=== PATIENT | female | born 1975 ===

== ENCOUNTER 2017-10-23 22:16 | Emergency (ER) | payer MEDICAID ==
[2017-10-23 22:42] VITALS: BMI 29.7
[2017-10-23 22:46] VITALS: RESP 18; TEMP 98.1
[2017-10-23] MEDS ORDERED: TDAP Vaccine 0.5 mL Syr IM ONE (23:10)
--- NOTE | 2017-10-23 23:10 | ED PDOC ---
Arrival/HPI - General Chief Complaint: Abnormal Skin Integrity Time Seen by Provider: 10/23/17 23:10 Historian: Patient, Spouse - History of Present Illness Narrative History of Present Illness (Text): 10/23/17 23:10 This 41 yo female came to ED c/o left 3rd finger laceration x [employer]. Patient stated while cutting a cellphone Past Medical History - Infectious Disease Hx of Infectious Diseases: None - Tetanus Immunization Tetanus Immunization: Unknown - Cardiac Hx Cardiac Disorders: No Other/Comment: DVT - Pulmonary Hx Respiratory Disorders: Yes Other/Comment: SMOKES CIGARETTES - Neurological Hx Neurological Disorder: Yes Hx Seizures: Yes - HEENT Hx HEENT Disorder: No - Renal Other/Comment: URINARY RETENTION - Endocrine/Metabolic Hx Endocrine Disorders: No - Hematological/Oncological Hx Blood Disorders: Yes Hx Cancer: Yes (UTERINE CA) Hx Chemotherapy: Yes - Integumentary Hx Dermatological Disorder: No - Musculoskeletal/Rheumatological Hx Musculoskeletal Disorders: Yes Hx Falls: Yes Hx Unsteady Gait: Yes - Gastrointestinal Hx Gastrointestinal Disorders: Yes Other/Comment: GASTRIC BYPASS - Genitourinary/Gynecological Hx 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) Other/Comment: HYSTERECTOMY - Psychiatric Hx Psychophysiologic Disorder: Yes Hx Anxiety: Yes Hx Substance Use: No (DENIES) - Surgical History Hx Gastric Bypass Surgery: Yes Hx Hysterectomy: Yes Other/Comment: bladder sling , bilat bunionectomy - Anesthesia Hx Anesthesia: No Hx Anesthesia Reactions: No Hx Malignant Hyperthermia: No - Suicidal Assessment Feels Threatened In Home Enviroment: No Family/Social History Smoking Status: Light Smoker < 10 Cigarettes Daily Hx Alcohol Use: No (DENIES) Hx Substance Use: No (DENIES) Hx Substance Use Treatment: No Allergies/Home Meds Allergies/Adverse Reactions: Allergies latex Allergy (Verified 05/03/17 12:05) ANAPHYLAXIS Home Medications: Home Meds Medication Instructions Recorded Confirmed Gabapentin [Neurontin] 800 mg PO QID 01/20/14 04/13/15 Baclofen [Lioresal] 20 mg PO 05/03/17 Benzonatate [Tessalon [place]] 100 mg PO PRN PRN 05/03/17 05/03/17 Hydrocodone/Acetaminophen [[place] 1 each PO Q8 05/03/17 05/03/17 10-325 Tablet] Ibuprofen [Motrin Tab] 800 mg PO PRN PRN 05/03/17 05/03/17 carBAMazepine [Tegretol] 200 mg PO QID 05/03/17 05/03/17 Carbamazepine ER 1 tab PO HS 05/04/17 05/04/17 Codeine Sulfate 1 tab PO Q6H PRN 05/04/17 05/04/17 Codeine Sulfate 60 mg PO PRN 05/04/17 Morphine Extended Release Tab 1 tab PO BID 05/04/17 05/04/17 Naloxegol Oxalate [Movantik] 25 mg PO DAILY 05/04/17 05/04/17 Quetiapine Fumarate 1 tab PO HS 05/04/17 05/04/17 lamoTRIgine [Lamictal] 50 mg PO HS 05/04/17 05/04/17 traZODone [Desyrel] 50 mg PO HS PRN MDD 100 05/04/17 05/04/17 Physical Exam Vital Signs Temp Pulse Resp Pulse Ox 10/23/17 22:42 98.1 F 96 H 18 98 Medical Decision Making ED Course and Treatment: 10/24/17 00:17 Re-evaluation. Patient feels better. Discussed results and plan with patient who expresses understanding. All questions answered and there is agreement with the plan to discharge home with instructions. Patient stable for discharge. Return if symptoms persist or worsen. Re-evaluation Time: 00:17 Reassessment Condition: Re-examined, Improved - Medication Orders Current Medication Orders: Discontinued Medications Cephalexin Monohydrate (Keflex) 500 mg PO STAT STA PRN Reason: Protocol Stop: 10/23/17 23:12 Last Admin: 10/24/17 00:12 Dose: 500 mg Tetanus/Reduced Diphtheria/Acell Pertussis (Boostrix Vaccine Inj) 0.5 ml IM .ONCE ONE Stop: 10/23/17 23:11 Last Admin: 10/24/17 00:13 Dose: 0.5 ml Immunization Registry Document 10/24/17 00:13 AD (Rec: 10/24/17 00:13 AD [id number]) Immunization Registry Consent Date 04/01/17 - Procedure PROCEDURE NOTE (Text): 10/24/17 00:17 5 sutures, approx 3.2 cm Disposition/Present on Arrival - Present on Arrival Any Indicators Present on Arrival: No History of DVT/PE: No History of Uncontrolled Diabetes: No Urinary Catheter: No History of Decub. Ulcer: No History Surgical Site Infection Following: None - Disposition Have Diagnosis and Disposition been Completed?: Yes Diagnosis: Finger laceration Disposition: HOME/ ROUTINE Disposition Time: 00:18 Patient Plan: Discharge Patient Problems: Current Active Problems Problem Status Onset Finger laceration Acute Condition: GOOD Discharge Instructions (ExitCare): Laceration Repair With Stitches (DC) Additional Instructions: Call private doctor for wound check and revaluation in 2-3 days. Keep wound clean and dry for 2 days, then clean wound daily with soap and water. Take medication as instructed. Return to emergency if there is sign of infection or increasing pain. Prescriptions: Cephalexin [Keflex] 500 mg PO QID #20 capsule Referrals: [facility] [employer] [Outside] - Follow up with primary [facility] [Outside] - Follow up with primary Forms: [facility] (Slovak), WORK NOTE
[2017-10-24 00:36] VITALS: BP 120/79; PULSE 83; O2SAT 100
== END 2017-10-24 00:35 | disposition home or self-care (01) ==
LOC: ED 22:16
DX: S61.213A Laceration without foreign body of left middle finger without damage to nail, initial encounter (principal); W27.8XXA Contact with other nonpowered hand tool, initial encounter; Y92.89 Other specified places as the place of occurrence of the external cause; Z23 Encounter for immunization

== ENCOUNTER 2018-07-07 13:55 | Outpatient (CLI) | payer MEDICAID | END 2018-07-07 13:56 | disposition home or self-care (01) | LOC: RAD 13:55 ==